=== PATIENT | male | born 1985 | race Two or more races ===

== ENCOUNTER 2016-09-20 17:47 | Emergency (ER) | payer MEDICAID ==
[~2016-09-20] VITALS: Ht 182.9 cm; Wt 100.0 kg
[2016-09-20] MEDS ORDERED: HYDROCODONE/ACETAMINOPHEN 5/325MG TABLET PO STA (18:08)
[2016-09-20] MEDS ORDERED: SODIUM CHLORIDE 0.9% 1,000 ML IV ONE (18:08)
[2016-09-20] MEDS ORDERED: ACYCLOVIR INJ 400 MG in DEXT 5% WATER 100 ML IV ONE (18:30)
[2016-09-20] MEDS ORDERED: METHYLPREDNISOLONE SOD SUCC 125 MG/2 ML VIAL IV ONE (18:30)
[2016-09-20 19:10] LABS: CHLORIDE 109 mEq/L (98-107)
[2016-09-20 19:11] LABS: INR 1.1; PROTHROMBIN TIME 10.9 sec
[2016-09-20 19:16] LABS: CARBON DIOXIDE 22 mEq/L (21-32); ETHANOL BLOOD < 10 mg/dL
[2016-09-20 19:17] LABS: BASOPHILS % 0.6 % (0.0-2.0); EOSINOPHILS % 3.6 % (0.0-5.0); HEMOGLOBIN. 11.3 g/dL (14.0-18.0); LYMPHOCYTES % 17.8 % (20.0-50.0); MEAN CORPUSCULAR HEMOGLOBIN 27.9 pg (28.0-32.0); MEAN CORPUSCULAR VOLUME 83.8 fL (80.0-94.0); MEAN PLATELET VOLUME 8.2 fl (7.4-10.4); MONOCYTES % 8.1 % (2.0-8.0); NEUTROPHILS % 69.9 % (40.0-76.0); PLATELET 216 x1000/uL (130-400); RED BLOOD CELL COUNT 4.06 mill/uL (4.7-6.1); RED CELL DISTRIBUTION WIDTH 15.2 % (11.6-14.6)
[2016-09-20 19:21] LABS: TROPONIN I < 0.02 ng/mL (0.00-0.04)
[2016-09-20 21:30] VITALS: BP 121/66
== END 2016-09-20 22:00 | disposition home or self-care (01) ==
LOC: ER 18:11
DX: G51.0 Bell's palsy (principal)
CPT/HCPCS: 36415; 70450; 71010; 80053; 84443; 84484; 85025; 85610; 93005; 96361; 96365; 96375; 99285; G0482; J0133; J2930; J7030; Z7610; J7060